=== PATIENT | male | born 1985 | race Caucasian/White ===

== ENCOUNTER 2024-09-03 14:17 | Outpatient (AMB) | payer OTHER, SELFPAY ==
--- NOTE | 2024-09-03 14:19 | A.OFFVIS_ITS ---
Vital Signs 09/03/24 14:23 Height 5 ft 7 in Weight 212 lb 15.465 oz BMI 33.4 BP 128/64 Blood Pressure Location Rt brachial Position Sitting Pulse 80 Intake Visit Reasons: Painful mass lower back Intake Note: Patient referred by pcp Marilyn Newman PA-C for mass on lower back. Present for 4-5yrs. Patient c/o: enlarging, painful to touch. Reports no prior trauma to area. Student Counselor Required: No Accompanied by: Self / Same As Patient Allergies hydroxyzine Allergy (Mild, Verified 09/03/24 14:33) Rash Medication List - Last Reconciled 09/03/24 by Malcolm Quinones MD methimazole 5 mg PO DAILY HPI HPI Painful mass lower back: Details: 39-year-old male referred for a mass on the lower back. He says he has 2 masses on the lumbar region of his back which he has had for more than 10 years. He feels that these masses have been increasing in size. He describes discomfort and occasional pain. He denies any skin changes. He denies any drainage. COUNTS INCLUDE 234 BEDS AT THE [facility] Medical History Mass on back Graves' disease Hyperthyroidism Surgical History [place] teeth extracted Family History Mother Lung cancer Social History Patient Tobacco Use Status: Never used Tobacco Substance Use Type: Marijuana Review of Systems Const Denies chills and Denies fever(s) Card Denies chest pain, Denies dyspnea and Denies dyspnea on exertion Resp Denies cough, Denies dyspnea and Denies dyspnea on exertion GI Denies hematochezia and Denies change in bowel habits Denies hematuria and Denies difficulty urinating Musc Denies back pain and Denies limited range of motion Neuro Denies focal weakness and Denies convulsions Psych Denies depression and Denies mood swings Physical Exam Vital Signs: Last Vital Signs Pulse 80 09/03/24 14:23 BP 128/64 09/03/24 14:23 BMI result Body Mass Index 33.4 Const General: comfortable and no acute distress Orientation/consciousness: patient oriented x3 Neck Neck: Yes no lymphadenopathy Resp Auscultation: clear to auscultation bilaterally Cardio Rhythm: regular rhythm GI Palpation (GI): Soft to palpation, nontender and no guarding Back/Spine/Pelvis Other: Vague deep subcutaneous masses on the lumbar region, not well-defined Neuro General: patient oriented x3 Assessment & Plan Assessment & Plan (1) Mass on back: Code(s): R22.2 - Localized swelling, mass and lump, trunk Category: Medical Plan: He points to this 2 areas on the lumbar region with vague masses. These are poorly defined. I am going to send him for a an ultrasound of the soft tissue to define this 2 masses I will see him in the office after the ultrasound to discuss of care He understands the plan well and is comfortable with this. Coding Level of Care Code New Pt Level 3 (74093) Diagnoses Mass on back R22.2
[2024-09-03 14:23] VITALS: BP 128/64; PULSE 80; BMI 33.4
--- OUTSIDE RECORDS SUMMARY | 2024-09-03 16:51 | XMS_ITS | Patient Health Record ---
Author Organization [facility] Address [address] [place] [address] Care Team Providers Care Nonprofit Manager Name Role Phone WILIAN SINGH Primary Care Provider [phone] Paty Sanders [phone] Allergies Allergen (clinical drug ingredient) Drug/Non Drug Allergy documented on EMR Reaction Allergy Type Onset Date Status hydroxyzine HydrOXYzine HCl Unknown Drug Allergy Active Reason For Referral Reason Evaluation and manag ement - Dr. Lynn Diagnosis 1 Generalized anxiety disorder (F41.1) Referral Organization [facility] Referring Provider First Name WILIAN Referring Provider Last Name SAMANTHA Referring Provider Speciality Internal M edicine Referred Provider Specialty Psychiatry General Notes Referral sent to Dr. Oden - Office will call patient for scheduling., Yelena Hager 11/06/2023 08:31:37 AM > Referral Priority Routine Reason please evaluate and treat Please evaluate and treat Diagnosis 1 Localized swelling, mass and lump, unspecified (R22.9) Referral Organization [facility] Referring Provider First Name Paty Referring Provider Last Name Marilyn Referred Provider Specialty General Surg maury General Notes Please call the [facility] to schedule the appointment, Attila ([facility]) General Surgery Please contact them at [phone], Evelia Garrett 08/03/2024 03:53:12 PM > Referral Priority Routine Medications Medication SIG (Take, Route, Frequency, Duration) Notes Start Date End Date Status methIMAzole 5 MG 1 tablet Orally 2 ti mes day for 30 days 08/05/2023 Active Sertraline HCl 25 MG 1 tablet Orally Onc e a day for 30 days 11/04/2023 Not-Taking Social History Tobacco Use: Social History Observation Description Date Details (start date - stop date) Never Smoker NA - NA Tobacco Use/Smoking Question Answer Notes Are you a nonsmoker Alcohol Screen (Audit-C) Question Answer Notes Did you have a drink contain ing alcohol in the past year? Yes How often did you have a dri nk containing alcohol in the past year? Monthly or less (1 point) How many drinks did you have on a typical day when you were drinking in the past year? 1 or 2 drinks (0 point) How often did you have 6 or more drinks on one occasion in the past year? Never (0 point) Points 1 Interpretation Negative Problems Problem Type SNOMED Code ICD Code Onset Dates Problem Status W/U Status Risk Notes Problem Thyrotoxicosis (45304013) Thyrotoxicosis, unspecified without thyrotoxic crisis or storm (E05.90) Active confirmed Problem Obesity due to excess calories (999414121) Other obesity due to excess calories (E66.09) Active confirmed Problem Generalized anxiety disorder (55473395) Generalized anxiety disorder (F41.1) Active confirmed Problem Insomnia (076747412) Insomnia, unspecified (G47.00) Active confirmed Problem Left side sciatica (054953842100731) Sciatica, left side (M54.32) Active confirmed Problem Pain (05537474) Pain, unspecified (R52) Active confirmed Problem Body mass index 30.00 to 34.99 (540084945777209) Body mass index [BMI] 31.0-31.9, adult (Z68.31) Active confirmed Problem History of disease caused by Severe acute respiratory syndrome coronavirus 2 (situation) (19528113929166248 5) Personal history of COVID-19 (Z86.16) Active confirmed Problem Nondependent cannabis abuse (610420016) Marijuana use, continuous (F12.90) Active confirmed Vital Signs Heart Rate 82 /min 07/22/2024 Temperature 96.9 degrees Fahrenheit 07/22/2024 Blood pressure diastolic 80 mm Hg 07/22/2024 Oximetry 98 % 07/22/2024 Height 67 in 07/22/2024 Blood pressure systolic 112 mm Hg 07/22/2024 Weight 212.4 lbs 07/22/2024 BMI 33.26 kg/m2 07/22/2024 Encounters Encounter Location Date Provider Diagnosis [address] [address] 12/25/2023 Vannajusmimi Padillacaroline [address] [place] [address] 11/04/2023 [facility] Thyrotoxicosis, unspecified without thyrotoxic crisis or storm E05.90 and Generalized anxiety disorder F41.[address] [place] [address] 01/30/2024 [facility] Annual physical exam Z00.00 ; Thyrotoxicosis, unspecified without thyrotoxic crisis or storm E05.90 ; Generalized anxiety disorder F41.1 ; Other obesity due to excess calories E66.09 and Dietary counseling and surveillance Z71.[address] [address] 07/22/2024 Paty Sanders Localized swelling, mass and lump, unspecified R22.[address] [address] 11/27/[address] [address] 01/30/[address] [address] 08/03/2024 C[facility]ENO [facility] Assessments Encounter Date Diagnosis (ICD Code) Assessment Notes Treatment Notes Treatment Clinical Notes Section Notes 11/04/2023 Thyrotoxicosis, unspecified without thyrotoxic crisis or storm (ICD-10 - E05.90) Mr. Quinones is 38 years old pleasant gentleman with thyrotoxicosis and complains of social phobia/agoraphobia . Plan is as follows Thyrotoxicosis. Stable at this point on methimazole 5 mg daily and he will follow up with [facility] endocrinology in 6 months. Generalized anxiety disorder/social phobia/agoraphobia . Different modalities discussed and he started on Zoloft 25 mg daily. Side effects explained. He is also given referral to psychiatry for further evaluation 01/30/2024 Thyrotoxicosis, unspecified without thyrotoxic crisis or storm (ICD-10 - E05.90) Mr. Quinones is a 38 year old gentleman with generalized anxiety disorder, insomnia, thyrotoxicosis and he sees endocrinology at [facility] and chronic lower back pain secondary to work injury here for annual physical exam. Plan is as follows: Thyrotoxicosis. Stable at this point on methimazole 5 mg daily and he follows up with [facility] endocrinology Generalized anxiety disorder/social phobia/agoraphobia . Continue Zoloft 25 mg daily. Cannabis use. Complications of cannabis use discussed and patient abstinence encouraged. obesity. Complications of obesity discussed. Advised low-calorie food, regular exercise and try to lose 6 pounds a month. Eye screening. He sees his flavorings compounder regularly. Dental screening. He sees dentist regularly. Immunizations. He is up-to-date on his vaccinations. Declines flu shot. Screening blood work before next appointment. General health concerns discussed with patient. Scribe services used to formulate this note under HIPAA compliance and under [place] law mandated for scribe services. Patient aware of service. Verbal consent and written consent taken from the patient. Patient understands and verbalizes understanding of the scribes services and all questions answered regarding scribes services. Patient agrees to use of scribes services. 01/30/2024 Annual physical exam (ICD-10 - Z00.00) Mr. Quinones is a 38 year old gentleman with generalized anxiety disorder, insomnia, thyrotoxicosis and he sees endocrinology at [facility] and chronic lower back pain secondary to work injury here for annual physical exam. Plan is as follows: Thyrotoxicosis. Stable at this point on methimazole 5 mg daily and he follows up with [facility] endocrinology Generalized anxiety disorder/social phobia/agoraphobia . Continue Zoloft 25 mg daily. Cannabis use. Complications of cannabis use discussed and patient abstinence encouraged. obesity. Complications of obesity discussed. Advised low-calorie food, regular exercise and try to lose 6 pounds a month. Eye screening. He sees his flavorings compounder regularly. Dental screening. He sees dentist regularly. Immunizations. He is up-to-date on his vaccinations. Declines flu shot. Screening blood work before next appointment. General health concerns discussed with patient. Scribe services used to formulate this note under HIPAA compliance and under [place] law mandated for scribe services. Patient aware of service. Verbal consent and written consent taken from the patient. Patient understands and verbalizes understanding of the scribes services and all questions answered regarding scribes services. Patient agrees to use of scribes services. 07/22/2024 Localized swelling, mass and lump, unspecified (ICD-10 - R22.9) Mr. Quinones is a 39 year old gentleman with generalized anxiety disorder, insomnia, thyrotoxicosis and he sees endocrinology at [facility] and chronic lower back pain secondary to work injury here for painfulf fat deposits located in his lower back. Plan as follows: Localized mobile mass: - Multiple/rubbery in consistency masses are noted along the lower back pain. Non-tender, erythematous, no purulent discharge. We will send a referral to Gen surgeon for further management. General concerns have been discussed I have rendered the services for this patient under direct supervision of Dr. Singh, who did not see the patient but was available upon request 01/30/2024 Generalized anxiety disorder (ICD-10 - F41.1) Mr. Quinones is a 38 year old gentleman with generalized anxiety disorder, insomnia, thyrotoxicosis and he sees endocrinology at [facility] and chronic lower back pain secondary to work injury here for annual physical exam. Plan is as follows: Thyrotoxicosis. Stable at this point on methimazole 5 mg daily and he follows up with [facility] endocrinology Generalized anxiety disorder/social phobia/agoraphobia . Continue Zoloft 25 mg daily. Cannabis use. Complications of cannabis use discussed and patient abstinence encouraged. obesity. Complications of obesity discussed. Advised low-calorie food, regular exercise and try to lose 6 pounds a month. Eye screening. He sees his flavorings compounder regularly. Dental screening. He sees dentist regularly. Immunizations. He is up-to-date on his vaccinations. Declines flu shot. Screening blood work before next appointment. General health concerns discussed with patient. Scribe services used to formulate this note under HIPAA compliance and under [place] law mandated for scribe services. Patient aware of service. Verbal consent and written consent taken from the patient. Patient understands and verbalizes understanding of the scribes services and all questions answered regarding scribes services. Patient agrees to use of scribes services. 11/04/2023 Generalized anxiety disorder (ICD-10 - F41.1) Mr. Quinones is 38 years old pleasant gentleman with thyrotoxicosis and complains of social phobia/agoraphobia . Plan is as follows Thyrotoxicosis. Stable at this point on methimazole 5 mg daily and he will follow up with [facility] endocrinology in 6 months. Generalized anxiety disorder/social phobia/agoraphobia . Different modalities discussed and he started on Zoloft 25 mg daily. Side effects explained. He is also given referral to psychiatry for further evaluation 01/30/2024 Other obesity due to excess calories (ICD-10 - E66.09) Mr. Quinones is a 38 year old gentleman with generalized anxiety disorder, insomnia, thyrotoxicosis and he sees endocrinology at [facility] and chronic lower back pain secondary to work injury here for annual physical exam. Plan is as follows: Thyrotoxicosis. Stable at this point on methimazole 5 mg daily and he follows up with [facility] endocrinology Generalized anxiety disorder/social phobia/agoraphobia . Continue Zoloft 25 mg daily. Cannabis use. Complications of cannabis use discussed and patient abstinence encouraged. obesity. Complications of obesity discussed. Advised low-calorie food, regular exercise and try to lose 6 pounds a month. Eye screening. He sees his flavorings compounder regularly. Dental screening. He sees dentist regularly. Immunizations. He is up-to-date on his vaccinations. Declines flu shot. Screening blood work before next appointment. General health concerns discussed with patient. Scribe services used to formulate this note under HIPAA compliance and under [place] law mandated for scribe services. Patient aware of service. Verbal consent and written consent taken from the patient. Patient understands and verbalizes understanding of the scribes services and all questions answered regarding scribes services. Patient agrees to use of scribes services. 01/30/2024 Dietary counseling and surveillance (ICD-10 - Z71.3) Mr. Quinones is a 38 year old gentleman with generalized anxiety disorder, insomnia, thyrotoxicosis and he sees endocrinology at [facility] and chronic lower back pain secondary to work injury here for annual physical exam. Plan is as follows: Thyrotoxicosis. Stable at this point on methimazole 5 mg daily and he follows up with [facility] endocrinology Generalized anxiety disorder/social phobia/agoraphobia . Continue Zoloft 25 mg daily. Cannabis use. Complications of cannabis use discussed and patient abstinence encouraged. obesity. Complications of obesity discussed. Advised low-calorie food, regular exercise and try to lose 6 pounds a month. Eye screening. He sees his flavorings compounder regularly. Dental screening. He sees dentist regularly. Immunizations. He is up-to-date on his vaccinations. Declines flu shot. Screening blood work before next appointment. General health concerns discussed with patient. Scribe services used to formulate this note under HIPAA compliance and under [place] law mandated for scribe services. Patient aware of service. Verbal consent and written consent taken from the patient. Patient understands and verbalizes understanding of the scribes services and all questions answered regarding scribes services. Patient agrees to use of scribes services. Plan Of Treatment Future Test Test Name Order Date Reverse T3, Serum-[id number] 01/30/2024 TSH+Free [id number] 01/30/2024 Lipid Panel-[id number] 01/30/2024 Comp. Metabolic Panel [id number] 2023 Insurance Providers Payer Name Payer Address Payer Phone Subscriber Number Group Number Insured Name Patient Relationship to Insured Coverage Start Date Coverage End Date [facility] [address] [address] [place] [address] [id number] Yobani Quinones Self - patient is the insured Medical (General) History Medical History History ICD Code Hyperthyroidism Insomnia Chronic lower back pain secondary to wor k injury. Generalized anxiety disorder . Currently seeing counselor Psy and therapist in [place] Surgical History Surgery Date(Month/Year) vasectomy Hospitalization History Reason Date(Month/Year)
== END 2024-09-03 14:36 | disposition home or self-care (01) ==
LOC: HO.HGS 14:18
PROVIDERS: Visit Provider Surgery
DX: R22.2 Localized swelling, mass and lump, trunk (principal)
CPT/HCPCS: 99203

== ENCOUNTER → 2024-09-03 14:17 | Outpatient (BNVA) | payer OTHER, SELFPAY | PROVIDERS: Visit Provider Surgery | DX: R22.2 Localized swelling, mass and lump, trunk (principal) | CPT/HCPCS: 99202 ==

== ENCOUNTER 2024-10-22 08:48 | Outpatient (REF) | payer OTHER, SELFPAY ==
--- OUTSIDE RECORDS SUMMARY | 2023-07-09 11:45 | XMS_ITS ---
Author Organization [facility] Address [address] [place] [id number] Care Team Providers Care Ceramics Test Engineer Name Role Phone BAHMAN PRESLEY Unavailable [phone] REASON FOR VISIT Counseling/Testing Social History Sex Assigned At : Social History Observation Description Sex Assigned At Male Encounters Encounter Location Date Provider Diagnosis [facility] [address] [place] [address] [place] [id number] 07/09/2023 BAHMAN PRESLEY Plan Of Treatment No Information Progress Notes * Gurjit COHNinDOB:[birth year] (39 yo M)Acc No.[id number]:07/09/2023 Progress Notes Patient: Yobani RODRIGES Provider: Augustine Presley NP :1985 A ge:38 Y S ex:Male Date:07/09/2023 Address:[address] [place], [place] [id number] Subjective: * Chief Complaints: * 1 . Counseling/Testing. * Medical History: Objective: * Vitals: Assessment: Plan: * Treatment: * Billing Information: * Visit Code: * Procedure Codes: * Electronic signature of CAMDEN PRESLEY NP on 10/22/2024 at 09:04 AM EDT Sign off status: Pending * Provider: Augustine Presley NP Date: 07/09/2023 Generated for Summeri ng/Fajesusg/eTransmitting on: 10/22/2024 09:04 AM EDT
--- NOTE | ~2024-10-22 | US_ITS ---
CLINICAL HISTORY: R22.2 - Localized swelling, mass and lump, trunk --- Additional Notes or Special Instructions: Soft tissue mass on the lumbar area of the back US limited pelvis nonvascular Comparison: None Findings: Sonographic evaluation in the area of clinical concern soft tissues of the right and left lower back demonstrate no discrete solid or cystic mass shadowing or calcifications. Impression: No sonographic correlate to the area of clinical concern lower back region bilaterally. This document has been electronically signed by: Ted Baker MD on 10/22/2024 11:04:24
--- OUTSIDE RECORDS SUMMARY | 2024-10-22 09:04 | XMS_ITS | Clinical Summary ---
Author Organization [facility] ity Address [address] [place] [address] Care Team Providers Care Director Of Community Education Name Role Phone Giovanna Mccord MD Primary Care Provider [phone] Allergies Active Allergy Reactions Criticality Noted Date Comments Other 07/09/2013 Seasonal Allergies Medications naproxen (NAPROSYN) 500 mg tablet Take 1 Tab by mouth 2 times daily (with meals). 06/03/2018 Active Active Problems Problem Noted Date Diagnosed Date Back pain 07/09/2013 Migraine 07/09/2013 Neck pain 07/09/2013 Overweight 07/09/2013 Immunizations Name Administration Dates Next Due Tdap Tetanus diptheria acell ular pertussis (Boostrix; Adacel) 7yo and older 07/09/2013 Surgical History Surgery Date Site/Laterality Comments OTHER SURGICAL HISTORY PROCEDURE: DENIES PREVIOUS SURGERY Family History Medical History Relation Name Comments Hyperlipidemia Maternal Grandfather Hypertension Maternal Grandfather Diabetes Maternal Grandmother Heart failure Maternal Grandmother Hyperlipidemia Maternal Grandmother Hypertension Maternal Grandmother Stroke Maternal Grandmother Anemia Mother Arthritis Mother Diabetes Paternal Grandfather Hyperlipidemia Paternal Grandfather Hypertension Paternal Grandfather Hyperlipidemia Paternal Grandmother Hypertension Paternal Grandmother Other cancer Neg Hx Relation Name Status Comments Maternal Grandfather Maternal Grandmother Mother Paternal Grandfather Paternal Grandmother Social History Tobacco Use Types Packs/Day Years Used Date Smoking Tobacco: Former Cigarettes Q uit: 07/09/2009 Smokeless Tobacco: Never Alcohol Use Standard Drinks/Week Comments Yes 0 (1 standard drink = 0.6 oz pur e alcohol) Sex and Gender Information Value Date Recorded Sex Assigned at Not on file Legal Sex Male 11:36 PM EST Gender Identity Not on file Sexual Orientation Not on file Obstetrics History Plan of Treatment Health Maintenance Due Date Last Done Comments Hepatitis B Vaccines (1 of 3 - 19+ 3-dose series) 2006 Cholesterol Screening (Lipid Panel) 02/25/2022 07/09/2013 HIV Screening 02/25/2022 Hepatitis C Screening 02/25/2022 Social Influencers of Health Screening 02/25/2022 DTaP,Tdap,and Td Vaccines (2 - Td or Tdap) 07/10/2023 07/09/2013 COVID-19 Vaccine (1 - 2023-2 5 season) 2023 Depression Screening 03/25/2024 Influenza Vaccine (#1) 2024 HIB Vaccines Aged Out No longer eligi ble based on patient's age to complete this topic HPV Vaccines Aged Out No longer eligi ble based on patient's age to complete this topic Hepatitis A Vaccines Aged Out No long er eligible based on patient's age to complete this topic IPV Vaccines Aged Out No longer eligi ble based on patient's age to complete this topic MMR Vaccines Aged Out No longer eligi ble based on patient's age to complete this topic Meningococcal ACWY Vaccine Aged Out N o longer eligible based on patient's age to complete this topic Meningococcal B Vaccine Aged Out No l onger eligible based on patient's age to complete this topic Pneumococcal Vaccine: Pediat rics (0 to 5 Years) and At-Risk Patients (6 to 49 Years) Aged Out No longer eligi ble based on patient's age to complete this topic RSV Immunization Patients Un yovany 20 months Aged Out No longer eligible b ased on patient's age to complete this topic Varicella Vaccines Aged Out No longer eligible based on patient's age to complete this topic Procedures Procedure Name Priority Date/Time Associated Diagnosis Comments LIPID PANEL Routine 07/09/2013 from Last 3 Months or Most Recently Relevant to Health Maintenance Results * (ABNORMAL) Lipid panel (07/09/2013) LDL/HDL Ratio 5(A) 0 - 4 Triglycerides 172(A) 0 - 150 mg/dL Cholesterol 154 0 - 200 mg/dL HDL 33(A) >=40 mg/dL LDL Cholesterol 87 0 - 100 mg/dL Blood Venous blood specimen / Unknown us Historical Provider LAB BLOOD ORDERABLES Leonor l Result from Last 3 Months or Most Recently Relevant to Health Maintenance Care Teams Director Of Community Education Relationship Specialty Start Date End Date Giovanna Mccord MD [address] [place] [id number] PCP - General Internal Medicine 05/03/17
--- OUTSIDE RECORDS SUMMARY | 2024-10-22 09:04 | XMS_ITS | Patient Health Record ---
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 Lynn Diagnosis 1 Generalized anxiety disorder (F41.1) Referral Organization [facility] Referring Provider First Name WILIAN Referring [...] mass and lump, unspecified (R22.9) Referral Organization [employer] [facility] Referring Provider First Name Paty Referring Provider Last Name Marilyn Referred Provider Specialty General Surg maury General Notes Please call the [facility] to schedule the appointment, Attila ([facility]) General Surgery Please contact them at [phone], Evelia Garrett 08/03/2024 03:53:12 PM > Referral Priority Routine Medications Medication SIG (Take, Route, Frequency, Duration) Notes Start Date End Date Status methIMAzole 5 MG 1 tablet Orally 2 ti mes day; Duration: 30 days 08/05/2023 Active Sertraline HCl 25 MG 1 tablet Orally Onc e a day; Duration: 30 days 11/04/2023 Not-Taking Social History Tobacco [...] Status W/U Status Risk Notes Problem Thyrotoxicosis (86918472) Thyrotoxicosis, unspecified without thyrotoxic crisis or storm (E05.90) Active confirmed Problem Obesity due to excess calories (097342039) Other obesity due to excess calories (E66.09) Active confirmed Problem Generalized anxiety disorder (34958913) Generalized anxiety disorder (F41.1) Active confirmed Problem Insomnia (328100538) Insomnia, unspecified (G47.00) Active confirmed Problem Left side sciatica (236238531673639) Sciatica, left side (M54.32) Active confirmed Problem Pain (59463983) Pain, unspecified (R52) Active confirmed Problem Body mass index 30.00 to 34.99 (427545764991889) Body mass index [BMI] 31.0-31.9, adult (Z68.31) Active confirmed Problem History of disease caused by Severe acute respiratory syndrome coronavirus 2 (situation) (01386561359629361 5) Personal history of COVID-19 (Z86.16) Active confirmed Problem Nondependent cannabis abuse (409299182) Marijuana use, continuous (F12.90) Active confirmed Vital Signs Heart Rate 82 /min 07/22/2024 Temperature 96.9 degrees Fahrenheit 07/22/2024 Blood pressure diastolic 80 mm Hg 07/22/2024 Oximetry 98 % 07/22/2024 Height 67 in 07/22/2024 Blood pressure systolic 112 mm Hg 07/22/2024 Weight 212.4 lbs 07/22/2024 BMI 33.26 kg/m2 07/22/2024 Encounters Encounter Location Date Provider Diagnosis [facility] [address] [address] 12/25/2023 Paty Avelarum [address] [place] [address] 11/04/2023 [facility]IO[facility] Thyrotoxicosis, unspecified without thyrotoxic crisis or storm E05.90 and Generalized anxiety disorder F41.[address] [place] [address] 01/30/2024 WILIAN ANTONIO Annual physical exam Z00.00 ; Thyrotoxicosis, unspecified without thyrotoxic crisis or storm E05.90 ; Generalized anxiety disorder F41.1 ; Other obesity due to excess calories E66.09 and Dietary counseling and surveillance Z71.[address] [place] [address] 07/22/2024 Paty Sanders Localized swelling, mass and lump, unspecified R22.[address] [place] [address] 11/27/[address] [place] [address] 01/30/[address] [place] [address] 08/03/2024 CEDENO ANTONIO Assessments Encounter Date Diagnosis (ICD Code) Assessment Notes Treatment Notes Treatment Clinical Notes Section Notes 01/30/2024 Thyrotoxicosis, unspecified without thyrotoxic crisis or storm (ICD-10 - E05.90) Mr. Quinones is a 38 year old gentleman with generalized anxiety disorder, insomnia, thyrotoxicosis and he sees endocrinology at [facility] and chronic lower back pain secondary to work injury here for annual physical exam. Plan is as follows: Thyrotoxicosis. Stable at this point on methimazole 5 mg daily and he follows up with [facility] endocrinology Generalized anxiety disorder/social phobia/agoraphobia . Continue Zoloft 25 mg daily. Cannabis use. Complications of cannabis use discussed and patient abstinence encouraged. obesity. Complications of obesity discussed. Advised low-calorie food, regular exercise and try to lose 6 pounds a month. Eye screening. 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 Dental screening. He sees dentist regularly. Immunizations. He is up-to-date on his vaccinations. Declines flu shot. Screening blood work before next appointment. General health concerns discussed with patient. Scribe services used to formulate this note under HIPAA compliance and under [place] law mandated for scribe services. Patient aware [...] insomnia, thyrotoxicosis and he sees endocrinology at [facility] and chronic lower back pain secondary to work injury here for annual physical exam. Plan is as follows: Thyrotoxicosis. Stable at this point on methimazole 5 mg daily and he follows up with [facility] endocrinology Generalized anxiety disorder/social phobia/agoraphobia . Continue Zoloft 25 mg daily. Cannabis use. Complications of cannabis use discussed and patient abstinence encouraged. obesity. Complications of obesity discussed. Advised low-calorie food, regular exercise and try to lose 6 pounds a month. Eye screening. 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 Dental screening. He sees dentist regularly. Immunizations. He is up-to-date on his vaccinations. Declines flu shot. Screening blood work before next appointment. General health concerns discussed with patient. Scribe services used to formulate this note under HIPAA compliance and under [place] law mandated for scribe services. Patient aware [...] insomnia, thyrotoxicosis and he sees endocrinology at [facility] and chronic lower back pain secondary to [...] the patient but was available upon request 11/04/2023 Thyrotoxicosis, unspecified without thyrotoxic crisis or storm (ICD-10 - E05.90) Mr. Quinones is 38 years old pleasant gentleman with thyrotoxicosis and complains of social phobia/agoraphobia . Plan is as follows Thyrotoxicosis. Stable at this point on methimazole 5 mg daily and he will follow up with [facility] endocrinology in 6 months. Generalized anxiety disorder/social phobia/agoraphobia . Different modalities discussed and he started on Zoloft 25 mg daily. Side effects explained. He is also given referral to psychiatry for further evaluation 11/04/2023 Generalized anxiety disorder (ICD-10 - F41.1) Mr. Quinones is 38 years old pleasant gentleman with thyrotoxicosis and complains of social phobia/agoraphobia . Plan is as follows Thyrotoxicosis. Stable at this point on methimazole 5 mg daily and he will follow up with [facility] endocrinology in 6 months. Generalized anxiety disorder/social phobia/agoraphobia . Different modalities discussed and he started on Zoloft 25 mg daily. Side effects explained. He is also given referral to psychiatry for further evaluation 01/30/2024 Generalized anxiety disorder (ICD-10 - F41.1) Mr. Quinones is a 38 year old gentleman with generalized anxiety disorder, insomnia, thyrotoxicosis and he sees endocrinology at [facility] and chronic lower back pain secondary to work injury here for annual physical exam. Plan is as follows: Thyrotoxicosis. Stable at this point on methimazole 5 mg daily and he follows up with [facility] endocrinology Generalized anxiety disorder/social phobia/agoraphobia . Continue Zoloft 25 mg daily. Cannabis use. Complications of cannabis use discussed and patient abstinence encouraged. obesity. Complications of obesity discussed. Advised low-calorie food, regular exercise and try to lose 6 pounds a month. Eye screening. 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 Dental screening. He sees dentist regularly. Immunizations. He is up-to-date on his vaccinations. Declines flu shot. Screening blood work before next appointment. General health concerns discussed with patient. Scribe services used to formulate this note under HIPAA compliance and under [place] law mandated for scribe services. Patient aware of service. Verbal consent and written consent taken from the patient. Patient understands and verbalizes understanding of the scribes services and all questions answered regarding scribes services. Patient agrees to use of scribes services. 01/30/2024 Other obesity due to excess calories (ICD-10 - E66.09) Mr. Quinones is a 38 year old gentleman with generalized anxiety disorder, insomnia, thyrotoxicosis and he sees endocrinology at [facility] and chronic lower back pain secondary to work injury here for annual physical exam. Plan is as follows: Thyrotoxicosis. Stable at this point on methimazole 5 mg daily and he follows up with [facility] endocrinology Generalized anxiety disorder/social phobia/agoraphobia . Continue Zoloft 25 mg daily. Cannabis use. Complications of cannabis use discussed and patient abstinence encouraged. obesity. Complications of obesity discussed. Advised low-calorie food, regular exercise and try to lose 6 pounds a month. Eye screening. 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 Dental screening. He sees dentist regularly. Immunizations. He is up-to-date on his vaccinations. Declines flu shot. Screening blood work before next appointment. General health concerns discussed with patient. Scribe services used to formulate this note under HIPAA compliance and under [place] law mandated for scribe services. Patient aware [...] insomnia, thyrotoxicosis and he sees endocrinology at [facility] and chronic lower back pain secondary to work injury here for annual physical exam. Plan is as follows: Thyrotoxicosis. Stable at this point on methimazole 5 mg daily and he follows up with [facility] endocrinology Generalized anxiety disorder/social phobia/agoraphobia . Continue Zoloft 25 mg daily. Cannabis use. Complications of cannabis use discussed and patient abstinence encouraged. obesity. Complications of obesity discussed. Advised low-calorie food, regular exercise and try to lose 6 pounds a month. Eye screening. 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 Dental screening. He sees dentist regularly. Immunizations. He is up-to-date on his vaccinations. Declines flu shot. Screening blood work before next appointment. General health concerns discussed with patient. Scribe services used to formulate this note under HIPAA compliance and under [place] law mandated for scribe services. Patient aware of service. Verbal consent and written consent taken from the patient. Patient understands and verbalizes understanding of the scribes services and all questions answered regarding scribes services. Patient agrees to use of scribes services. Plan Of Treatment Future Test Test Name Order Date Reverse T3, [id number] 01/30/2024 TSH+Free [id number] 01/30/2024 Lipid Panel-[id number] 01/30/2024 Comp. Metabolic Panel [id number] 2023 Insurance Providers Payer Name Payer Address Payer Phone Subscriber Number Group Number Insured Name Patient Relationship to Insured Coverage Start Date Coverage End Date [facility]) [address] [address] [place] [address] [id number] Yobani Quinnoes Self - patient is the insured Medical (General) History Medical History History ICD Code Hyperthyroidism Insomnia Chronic lower back pain secondary to wor k injury. Generalized anxiety disorder . Currently seeing counselor Jonel and therapist in [place] Surgical History Surgery Date(Month/Year) vasectomy Hospitalization History Reason Date(Month/Year)
== END 2024-10-22 08:49 | disposition home or self-care (01) ==
LOC: HO.US 08:48
PROVIDERS: PCP Surgery; Visit Provider Surgery
DX: R22.2 Localized swelling, mass and lump, trunk (principal)
CPT/HCPCS: 76857

== ENCOUNTER → 2024-10-22 08:51 | Outpatient (BNV) | payer OTHER, SELFPAY | PROVIDERS: Visit Provider Radiology Diagnostic Radiology | DX: R22.2 Localized swelling, mass and lump, trunk (principal) | CPT/HCPCS: 76857 ==